=== PATIENT | female | born 1980 | race Caucasian/White ===

== ENCOUNTER 2018-12-04 16:28 | Emergency (ER) | payer BC ==
[2018-12-04] MEDS ORDERED: TORAdol 30 mg Injection IV ONE (16:51)
[2018-12-04] MEDS ORDERED: TORAdol 30 mg Injection ONE (16:53)
[2018-12-04] MEDS ORDERED: Zanaflex 4 MG PO STA (16:53)
[2018-12-04 17:54] VITALS: O2SAT 96
--- NOTE | 2018-12-04 18:22 | ERPHSYRPT ---
- History of Present Illness Source: patient Exam Limitations: no limitations Patient Subjective Stated Complaint: was dusting furniture last tuesday and felt something "crunch" in her back. has been having pain since then in lower back. states pain is worse today. Triage Nursing Assessment: ambulated to room per self. guarding lower back. skin w/d, color normal, resp easy. Physician History: Pt is a 38 y/o female that presented to the ER with back pain. Pt states, was dusting a chair on Tuesday and developed sharp pain in her back, that got progressively worse as the days passed. Pt used lido patch OTC and Ibuprofen, and used some Flexeril, with no relief. She denies any paralysis, change in sensation or focality. The pain is b/l IS joints areas. Timing/Duration: day(s) Method of Injury: bending Quality: sharp, throbbing Back Pain Location: lumbar spine, paraspinous muscles Severity of Pain-Max: severe Severity of Pain-Current: moderate Modifying Factors: Improves With: pain medication, rest Associated Symptoms: lower back pain, muscle spasms Previous symptoms: no prior history Allergies/Adverse Reactions: No Known Drug Allergies Allergy (Verified 12/04/18 16:43) Hx Tetanus, Diphtheria Vaccination/Date Given: No Hx Influenza Vaccination/Date Given: No Hx Pneumococcal Vaccination/Date Given: No - Review of Systems Constitutional: No Fever, No Chills Respiratory: No Cough, No Dyspnea Cardiac: No Chest Pain, No Edema, No Syncope Abdominal/Gastrointestinal: No Abdominal Pain, No Nausea, No Vomiting, No Diarrhea Musculoskeletal: Back Pain Neurological: No Dizziness, No Focal Weakness, No Sensory Changes - Past Medical History Pertinent Past Medical History: No - Past Surgical History Past Surgical History: Yes Female Surgical History: Section - Social History Smoking Status: Never smoker Exposure to second hand smoke: No Alcohol Use: Socially Drug Use: none Patient Lives Alone: No Significant Family History: no pertinent family hx - Female History Hx Now: No - Nursing Vital Signs Nursing Vital Signs: Initial Vital Signs Temperature 97.8 F 12/04/18 16:35 Pulse Rate 82 12/04/18 16:35 Respiratory Rate 16 12/04/18 16:35 Blood Pressure 123/71 12/04/18 16:35 O2 Sat by Pulse Oximetry 97 12/04/18 16:35 Pain Scale Pain Intensity 2 - Physical Exam General Appearance: moderate distress Eye Exam: PERRL/EOMI, eyes nml inspection Neck Exam: normal inspection, non-tender, supple, full range of motion, No meningismus, No midline tenderness Respiratory Exam: normal breath sounds, lungs clear, No respiratory distress Cardiovascular Exam: regular rate/rhythm, normal heart sounds Back Exam: muscle spasm, point tenderness (b/l IS joint pain) Extremity Exam: normal inspection, normal range of motion, No calf tenderness, No pedal edema Neurologic Exam: alert, oriented x 3, cooperative, 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, normal mood/affect, nml station & gait, sensation nml, No motor deficits SpO2: 96 - Course Nursing assessment & vital signs reviewed: Yes - Radiology Exams L-Spine X-ray Interpretation: Interpreted by me (No vertebral fracture, preserved space between vertebra.) Ordered Tests: Active Orders 24 hr Category Date Time Status IV Insertion STAT Care 12/04/18 16:48 Active LUMBAR COMPLETE (MIN 4 VIEWS) Stat Exams 12/04/18 17:12 Taken Medication Summary Discontinued Medications Generic Name Dose Route Start Last Admin Trade Name Roscoe PRN Reason Stop Dose Admin Ketorolac Tromethamine 30 mg 12/04/18 16:51 12/04/18 16:56 Toradol 30 Mg Injection IV 12/04/18 16:52 30 mg STAT ONE Administration Ketorolac Tromethamine Confirm 12/04/18 16:53 Toradol 30 Mg Injection Administered 12/04/18 16:54 Dose 30 mg .ROUTE .STK-MED ONE Tizanidine HCl 8 mg 12/04/18 16:53 12/04/18 17:10 Zanaflex 4 Mg PO 12/04/18 16:54 8 mg ONCE STA Administration - Progress Progress: improved Progress Note: 12/04/18 18:20 Pt had Lumbar XR that did not show any acute fracture. Pt got Toradol 30mg IV and Zanaflex, that helped her pain. She does have Flexeril at home. I will prescribe Ibuprofen 800mg Q8H for anti inflammatory and pain relief. Pt should f/u with her PCP. Will see patient in: office Counseled pt/family regarding: need for follow-up - Departure Departure Disposition: Home Clinical Impression: Back pain Condition: Stable Critical Care Time: No Referrals: YONY GOMEZ MD [Primary Care Provider] - Additional Instructions: Take meds as ordered. F/U with PCP. Prescriptions: Ibuprofen 800 mg PO TID #30 tablet
[2018-12-04 18:31] VITALS: BP 97/52; PULSE 76
--- NOTE | 2018-12-04 20:23 | XRAY ---
Indication: Severe low back pain following bending injury. Comparison: None 5 views of the lumbar spine demonstrates 5 lumbar vertebral segments in normal alignment with vertebral body heights and disc spaces maintained. No acute fracture, subluxation, or pars interarticularis defect. Incidental IUD. Impression: Negative lumbar spine.
== END 2018-12-04 18:30 | disposition home or self-care (01) ==
LOC: ED 16:28
DX: M54.5 Low back pain (principal); X50.3XXA Overexertion from repetitive movements, initial encounter; M62.830 Muscle spasm of back
CPT/HCPCS: 36000; 72110; 96374; 99284; J1885; A9270-GY